=== PATIENT | male | born 1995 | race Asian ===

== ENCOUNTER 2018-09-04 15:55 | Emergency (ER) | payer OTHER ==
[~2018-09-04] VITALS: Ht 170.2 cm; Wt 65.9 kg
[2018-09-04 18:22] VITALS: BP 122/67
[2018-09-04] MEDS ORDERED: ACETAMINOPHEN 325 MG TABLET PO ONE (18:45)
== END 2018-09-04 20:08 | disposition home or self-care (01) ==
LOC: EMS 15:57
DX: S06.0X0A Concussion without loss of consciousness, initial encounter (principal); R41.0 Disorientation, unspecified; W01.10XA Fall on same level from slipping, tripping and stumbling with subsequent striking against unspecified object, initial encounter; Y93.89 Activity, other specified; Y92.89 Other specified places as the place of occurrence of the external cause; Y99.8 Other external cause status
CPT/HCPCS: 70450; 72125